=== PATIENT | female | born 1965 | race Caucasian/White ===

== ENCOUNTER 2017-12-23 02:19 | Emergency (ER) | payer MEDICAID ==
[~2017-12-23] VITALS: Ht 167.6 cm; Wt 58.5 kg
[~2017-12-23 02:19] MED LIST: ALBU8.5H5 INH; CYCL-259 PO; CYCL7.5T25 PO; GABA-826 PO; HIV MED PO; OFLO5DRO7 EACHEYE; TIOT18CA INH; [UNRECOGNIZED DRUG - REMARK]
[2017-12-23 02:21] VITALS: BP 122/80
[2017-12-23] MEDS ORDERED: HYDROcodone/APAP 5/325 TABLET ONE (03:04)
[2017-12-23] MEDS ORDERED: HYDROcodone/APAP 5/325 TABLET PO ONE (03:30)
== END 2017-12-23 03:22 | disposition home or self-care (01) ==
LOC: ED 03:05
DX: G89.18 Other acute postprocedural pain (principal); M25.551 Pain in right hip; J44.9 Chronic obstructive pulmonary disease, unspecified; Z87.891 Personal history of nicotine dependence
CPT/HCPCS: 99282

== ENCOUNTER 2018-04-07 20:03 | Emergency (ER) | payer MEDICAID ==
[~2018-04-07] VITALS: Ht 170.2 cm; Wt 55.1 kg
[2018-04-07 20:11] VITALS: BP 106/66
== END 2018-04-07 22:01 | disposition home or self-care (01) ==
LOC: ED 21:30
DX: L03.116 Cellulitis of left lower limb (principal); J44.9 Chronic obstructive pulmonary disease, unspecified; B20 Human immunodeficiency virus [HIV] disease
CPT/HCPCS: 99283

== ENCOUNTER 2018-06-30 18:03 | Emergency (ER) | payer MEDICAID ==
[~2018-06-30] VITALS: Ht 170.2 cm; Wt 59.0 kg
[2018-06-30 20:00] LABS: MICROSCOPIC INDICATED
[2018-06-30] MEDS ORDERED: SODIUM CHLORIDE 0.9% 1,000ML IVBOLUS ONE (20:00)
[2018-06-30 20:01] LABS: CULTURE INDICATED? YES
[2018-06-30 20:19] LABS: BASOPHILS # (AUTO) 0.04 x10^3/uL (0-0.1); BASOPHILS % (AUTO) 0 % (0-1); EOSINOPHILS # (AUTO) 0.02 x10^3/uL (0-0.4); EOSINOPHILS % (AUTO) 0 % (1-7); LYMPHOCYTES # (AUTO) 0.99 x10^3/uL (1-3.4); LYMPHOCYTES % (AUTO) 9 % (22-44); MD NO; MEAN CORPUSCULAR HEMOGLOBIN 29.9 pg (27.0-34.8); MEAN CORPUSCULAR HGB CONC 33.4 g/dL (32.4-35.8); MEAN CORPUSCULAR VOLUME 89.8 fL (80-100); MEAN PLATELET VOLUME 7.4 fL (7.4-10.4); MONOCYTES # (AUTO) 0.59 x10^3/uL (0.2-0.8); MONOCYTES % (AUTO) 5 % (2-9); NEUTROPHILS # (AUTO) 9.49 x10^3/uL (1.8-6.8); NEUTROPHILS % (AUTO) 85 % (42-75); PLATELET COUNT 236 x10^3/uL (130-400); RED CELL DISTRIBUTION WIDTH 13.4 % (9.6-15.2)
[2018-06-30 20:25] LABS: ALANINE AMINOTRANSFERASE 25 U/L (12-78); ALBUMIN 3.2 g/dL (3.4-5.0); ANION GAP 10 mmol/L (5-15); CALCIUM 8.1 mg/dL (8.5-10.1); CHLORIDE 107 mmol/L (98-107)
[2018-06-30 20:28] LABS: ALKALINE PHOSPHATASE 104 U/L (45-117); BILIRUBIN,TOTAL 0.5 mg/dL (0.2-1.0); CREATININE 0.79 mg/dL (0.55-1.02); TOTAL PROTEIN 6.8 g/dL (6.4-8.2)
[2018-06-30 20:35] LABS: HCG UR SG 1.015 (1.003-1.030)
[2018-06-30 21:27] VITALS: BP 118/64
[2018-06-30] MEDS ORDERED: CEFTRIAXONE 1,000 MG ONE (21:44)
[2018-06-30] MEDS ORDERED: CEFTRIAXONE 1,000 MG in SODIUM CHLORIDE 0.9% 50 ML IV ONE (22:00)
[2018-06-30] MEDS ORDERED: CEFDINIR 300 MG CAPSULE PO ONE (22:00)
[2018-06-30] MEDS ORDERED: CEFTRIAXONE PMX 1GM/50ML 50 ML IV ONE (22:00)
== END 2018-06-30 21:53 | disposition home or self-care (01) ==
LOC: ED 21:47
DX: N30.00 Acute cystitis without hematuria (principal); R53.81 Other malaise; R06.02 Shortness of breath; Z21 Asymptomatic human immunodeficiency virus [HIV] infection status; Z87.891 Personal history of nicotine dependence
CPT/HCPCS: 36415; 71045; 80053; 81001; 81025; 85025; 87077; 87086; 99285; J7030; 87186

== ENCOUNTER 2019-01-18 16:54 | Emergency (ER) | payer MEDICAID ==
[~2019-01-18] VITALS: Ht 170.2 cm; Wt 54.6 kg
[2019-01-18 17:02] VITALS: BP 136/61
[2019-01-18] MEDS ORDERED: IBUPROFEN 200 MG TABLET ONE (17:41)
[2019-01-18] MEDS ORDERED: IBUPROFEN 200 MG TABLET PO ONE (18:00)
== END 2019-01-18 18:10 | disposition home or self-care (01) ==
LOC: ED 18:01
DX: G89.11 Acute pain due to trauma (principal); M25.552 Pain in left hip; J44.9 Chronic obstructive pulmonary disease, unspecified; Z72.9 Problem related to lifestyle, unspecified; Z87.891 Personal history of nicotine dependence; Z21 Asymptomatic human immunodeficiency virus [HIV] infection status; W22.03XA Walked into furniture, initial encounter; Y93.89 Activity, other specified; Y92.89 Other specified places as the place of occurrence of the external cause; Y99.8 Other external cause status
CPT/HCPCS: 99283

== ENCOUNTER 2019-03-07 16:37 | Emergency (ER) | payer MEDICAID ==
[~2019-03-07] VITALS: Ht 170.2 cm; Wt 55.0 kg
--- NOTE | 2019-03-07 17:30 | NUR ---
PT REPORTS RLQ PAIN AND PAIN THAT RADIATES TO THE RIGHT FLANK. PAIN 8/10. LAB AT BEDSIDE TO DRAWN BLOOD. PT REPORTS SHE IS HIV+. BF AT BEDSIDE.
[2019-03-07] MEDS ORDERED: EFAV1TAB PO (17:43)
[2019-03-07] MEDS ORDERED: SODIUM CHLORIDE FLUSH 10ML SYR IVF ONE (18:00)
[2019-03-07 18:09] LABS: MICROSCOPIC NOT IND
[2019-03-07] MEDS ORDERED: MORPHINE SULFATE 4 MG/ML, 1ML ONE (18:13)
[2019-03-07 18:16] LABS: CULTURE INDICATED? NO
--- NOTE | 2019-03-07 18:16 | NUR ---
PT AMBULATORY TO THE BATHROOM WITH STEADY GAIT. PT MEDICATED FOR PAIN PER ER PA.
[2019-03-07 18:21] LABS: BASOPHILS # (AUTO) 0.03 x10^3/uL (0-0.1); BASOPHILS % (AUTO) 0 % (0-1); EOSINOPHILS # (AUTO) 0.12 x10^3/uL (0-0.4); EOSINOPHILS % (AUTO) 2 % (1-7); LYMPHOCYTES % (AUTO) 23 % (22-44); MD NO; MEAN CORPUSCULAR HEMOGLOBIN 29.7 pg (27.0-34.8); MEAN CORPUSCULAR VOLUME 89.8 fL (80-100); MEAN PLATELET VOLUME 7.4 fL (7.4-10.4); MONOCYTES # (AUTO) 0.55 x10^3/uL (0.2-0.8); MONOCYTES % (AUTO) 8 % (2-9); NEUTROPHILS % (AUTO) 68 % (42-75); PLATELET COUNT 292 x10^3/uL (130-400); RED BLOOD COUNT 4.79 x10^6/uL (3.82-5.3); RED CELL DISTRIBUTION WIDTH 13.7 % (9.6-15.2)
[2019-03-07] MEDS ORDERED: MORPHINE SULFATE 4 MG/ML, 1ML IVPush PRN (18:30)
[2019-03-07 18:31] LABS: ALANINE AMINOTRANSFERASE 19 U/L (12-78); ALBUMIN 4.2 g/dL (3.4-5.0); ANION GAP 5 mmol/L (5-15); CALCIUM 9.3 mg/dL (8.5-10.1); CHLORIDE 103 mmol/L (98-107); CREATININE 1.02 mg/dL (0.55-1.02)
[2019-03-07 18:34] LABS: ALKALINE PHOSPHATASE 104 U/L (45-117); BILIRUBIN,TOTAL 0.5 mg/dL (0.2-1.0); TOTAL PROTEIN 7.9 g/dL (6.4-8.2)
--- NOTE | 2019-03-07 18:56 | NUR ---
pt back from ct
[2019-03-07 18:58] VITALS: BP 127/74
--- NOTE | 2019-03-07 18:59 | NUR ---
pt reports pain has improved from 8/10 to 6/10 in the abd
--- NOTE | 2019-03-07 19:34 | NUR ---
AT BEDSIDE TO RECHECK PT. PT TO BE DCd HOME
[2019-03-07] MEDS ORDERED: OMNIPAQUE 350 MG/ML, 100ML BOTTLE ONE (23:32)
== END 2019-03-07 20:10 | disposition home or self-care (01) ==
LOC: ED 18:14
DX: R10.33 Periumbilical pain (principal); Z90.710 Acquired absence of both cervix and uterus; Z21 Asymptomatic human immunodeficiency virus [HIV] infection status
CPT/HCPCS: 36415; 74177; 80053; 81003; 83690; 85025; 96374; 99284; J2270; Q9967

== ENCOUNTER 2019-04-19 22:56 | Emergency (ER) | payer MEDICAID ==
[~2019-04-19] VITALS: Ht 170.2 cm; Wt 53.6 kg
[2019-04-19 22:58] VITALS: BP 123/65
== END 2019-04-20 01:58 | disposition home or self-care (01) ==
LOC: ED 23:53
DX: S39.012A Strain of muscle, fascia and tendon of lower back, initial encounter (principal); G44.219 Episodic tension-type headache, not intractable; Z21 Asymptomatic human immunodeficiency virus [HIV] infection status; W01.0XXA Fall on same level from slipping, tripping and stumbling without subsequent striking against object, initial encounter; Y93.89 Activity, other specified; Y92.009 Unspecified place in unspecified non-institutional (private) residence as the place of occurrence of the external cause; Y99.8 Other external cause status; J44.9 Chronic obstructive pulmonary disease, unspecified
CPT/HCPCS: 72072; 72110; 72131; 99284

== ENCOUNTER 2019-07-08 10:57 | Day surgery (SDC) | payer MEDICAID ==
[~2019-07-08] VITALS: Ht 170.2 cm; Wt 53.9 kg
[~2019-07-08 10:57] MED LIST changes: +EFAV1TAB PO
[2019-07-08 11:46] VITALS: BP 108/59
[2019-07-08] MEDS ORDERED: LACTATED RINGERS 1,000 ML IV SCH (11:54)
[2019-07-08] MEDS ORDERED: CIPROFLOXACIN/PMX 400MG/200ML 200 ML ONE (13:21)
[2019-07-08] MEDS ORDERED: PROPOFOL 10 MG/ML, 20ML ONE ×2 (13:47)
== END 2019-07-08 15:30 | disposition home or self-care (01) ==
LOC: OUT 10:57
PROVIDERS: ATTEND Internal Medicine Gastroenterology
DX: K86.2 Cyst of pancreas (principal); K29.50 Unspecified chronic gastritis without bleeding; K31.7 Polyp of stomach and duodenum; K80.20 Calculus of gallbladder without cholecystitis without obstruction; B20 Human immunodeficiency virus [HIV] disease; Z87.891 Personal history of nicotine dependence; Z88.0 Allergy status to penicillin; Z88.2 Allergy status to sulfonamides; Z88.8 Allergy status to other drugs, medicaments and biological substances
CPT/HCPCS: 43239; 43242; 88305; 93005; J0744; J2704